=== PATIENT | female | born 1960 | race Caucasian/White ===

== ENCOUNTER → 2017-01-11 | Outpatient (CLI) | payer BC ==
[~2017-01-11] MED LIST: AMPH30CA3 PO; RIZA10TA18 PO
--- NOTE | 2017-01-11 17:07 | DIAGNOSTIC IMAGING REPORT ---
CHEST 2 VIEWS ROUTINE CLINICAL HISTORY: Cough. COMPARISON STUDY: No previous studies for comparison. FINDINGS: Lung volumes are normal. There is apparent left lower lung retrocardiac opacity shown on the PA projection. This is not confirmed on the lateral projection. Right lung is clear. Cardiac size is normal. Mediastinal contours are normal. There is no evidence of pulmonary edema. IMPRESSION: Apparent left lower lung retrocardiac opacity. This raises the possibility of left lower lobe pneumonia. Post treatment radiographs are recommended to ensure resolution. Electronically signed by: Angelito Moore M.D. 01/11/2017 5:06 PM Dictated Date/Time: 01/11/2017 5:04 PM
== END | disposition home or self-care (01) ==
LOC: C.RAD1850 16:50
PROVIDERS: ATTEND Family Medicine
DX: R05 Cough (principal)

== ENCOUNTER → 2017-02-15 | Outpatient (CLI) | payer BC ==
--- NOTE | 2017-02-15 16:57 | DIAGNOSTIC IMAGING REPORT ---
CHEST 2 VIEWS ROUTINE CLINICAL HISTORY: Follow-up pneumonia. COMPARISON STUDY: Chest radiograph January 11, 2017. FINDINGS: Lung volumes are normal. There is no pneumothorax or pleural effusion. There is no evidence of pulmonary edema. Left lower lung retrocardiac opacity is less conspicuous than on prior exam. IMPRESSION: No acute cardiopulmonary findings findings. The left lower lung retrocardiac opacity is less conspicuous than on prior exam. Electronically signed by: Angelito Moore M.D. 02/15/2017 4:56 PM Dictated Date/Time: 02/15/2017 4:54 PM
== END | disposition home or self-care (01) ==
LOC: C.RAD1850 16:46
PROVIDERS: ATTEND Family Medicine
DX: J18.9 Pneumonia, unspecified organism (principal)

== ENCOUNTER → 2017-04-06 | Outpatient (CLI) | payer BC | END | disposition home or self-care (01) | LOC: C.PATHSPEC 16:33 | PROVIDERS: ATTEND Dermatology | DX: L57.0 Actinic keratosis (principal) ==

== ENCOUNTER → 2017-07-20 | Outpatient (CLI) | payer BC ==
--- NOTE | 2017-07-21 13:49 | MAMMOGRAPHY REPORT ---
BILATERAL DIGITAL SCREENING MAMMOGRAM TOMOSYNTHESIS WITH CAD: 07/20/2017 CLINICAL HISTORY: Routine screening. TECHNIQUE: Breast tomosynthesis in addition to standard 2D mammography was performed. Current study was also evaluated with a Computer Aided Detection (CAD) system. COMPARISON: Comparison is made to exams dated: 07/16/2016 mammogram, 06/26/2015 mammogram, 06/20/2014 j[facility]uel mogram, 06/15/2013 mammogram, 06/14/2012 mammogram, and 04/09/2011 mammogram - [facility] er. BREAST COMPOSITION: There are scattered areas of fibroglandular density in both breasts. FINDINGS: There are stable intramammary lymph nodes in each upper outer quadrant. Minimal vascular c alcification and scattered benign rim calcifications in the breasts. No suspicious mass, architectur al distortion or cluster of suspicious microcalcifications is seen. IMPRESSION: ACR BI-RADS CATEGORY 1: NEGATIVE There is no mammographic evidence of malignancy. A 1 year screening mammogram is recommended. The pa tient will receive written notification of the results. Approximately 10% of breast cancers are not detected with mammography. A negative mammographic report should not delay biopsy if a clinically suggestive mass is present. Amena Pendleton M.D. ay/:07/20/2017 16:45:41 [employer] Consultant: Juan DELACRUZ)(M), [facility] letter sent: Normal 1/2 BI-RADS Code: ACR BI-RADS Category 1: Negative
== END | disposition home or self-care (01) ==
LOC: C.MAMM 16:16
PROVIDERS: ATTEND Obstetrics & Gynecology
DX: Z12.31 Encounter for screening mammogram for malignant neoplasm of breast (principal)